=== PATIENT | female | born 1980 | race Caucasian/White ===

== ENCOUNTER 2018-10-19 13:11 | Emergency (ER) | payer OTHER, SELFPAY ==
[2018-10-19 13:16] VITALS: BP 105/80; PULSE 99; RESP 16; TEMP 36.7; O2SAT 100
--- NOTE | 2018-10-19 13:31 | NUR.NOTE ---
at bedside for eval Nursing Note:
--- NOTE | 2018-10-19 13:35 | DI.CT_ITS ---
SYMPTOMS/DIAGNOSIS: LEFT LOWER QUADRANT ABDOMINAL PAIN, H/O CYSTS, S/P HYSTERECTOMY CT SCAN OF THE ABDOMEN AND PELVIS: Routine examination was performed. No priors for comparison. Dependent atelectatic changes are seen in the lung bases. The liver is unremarkable. No suspicious hepatic masses seen. The portal and superior mesenteric veins are patent. The patient is status post cholecystectomy. There is no biliary ductal dilatation. The pancreas, spleen, adrenal glands, kidneys, ureters and bladder are unremarkable. The reproductive organs are unremarkable. There is bowel wall thickening seen in the descending colon and the proximal sigmoid colon with pericolonic inflammatory changes consistent with colitis. Infectious or inflammatory colitis should be considered. The remainder of the bowel is unremarkable. There is a normal appendix present. There is a small amount of fluid in the pelvis. No significant adenopathy or pneumoperitoneum is present. The aorta is of normal caliber. Postsurgical changes are seen in the lumbar spine extending from L3 through L5. IMPRESSION: Findings of colitis involving the descending colon and proximal sigmoid colon. The etiology may be infectious or inflammatory. The findings were discussed with Dr. Barbour of the Emergency Department on the date of the examination.
--- NOTE | 2018-10-19 13:37 | W.ED.GENAD ---
Discharge Plan Disposition Patient Disposition: HOME Condition: Improving Discharge Details Chief Complaint: Abd Prob Clinical Impression: Colitis Primary Care Provider: Suy[facility],Local ED Provider: Ryder Barbour Home Meds and New Rx's Prescriptions: New azithromycin 500 mg tablet 500 mg PO DAILY 3 Days Qty: 3 RF: 0 Continued montelukast [Singulair] 10 mg Tablet 10 mg PO DAILY RF: 0 albuterol sulfate [Ventolin HFA] 90 mcg/actuation Hfa Aerosol Inhaler 2 puff INHALATION PRN PRNRF: 0 Symbicort 160-4.5 mcg/actuation Hfa Aerosol Inhaler 2 puff INHALATION BID RF: 0 Discharge Instructions Additional Instructions: Home to rest today. Continue to push fluids to maintain hydration. Observe a bland diet. Follow-up with gastroenterology as you have previously planned next week. Take azithromycin for 3 days as prescribed. Return to the ER if you have worsening discomfort, develop bloody diarrhea, fever, or any other acute concern Medical Decision Making 37-year-old female with 2 weeks of intermittent left-sided predominantly lower abdominal pain. Associated with some dark-colored urine. She is visiting this area from her home in [place], [place]. She arrives to the ER afebrile with a pulse in the 90s, blood pressure 150/80. She is tender in the left abdomen but does not exhibit true peritonitis. Differential diagnosis includes renal colic, pyelonephritis, simple cystitis, ovarian cyst, bowel pathology such as diverticulitis. CT does reveal a distal colitis without evidence of diverticulitis. Patient has been traveling back and forth to her home in [place]. I do feel she is at risk for complicated/infectious colitis and I will treat her with 3 days of azithromycin. She has a history of IBS and has pre-standing follow-up with gastroenterology in [place] next week. She understands return precautions to the ER in the interim HPI General Mode of arrival: ambulatory. Date/Time Provider Initiated Documentation: 10/19/18 13:30. Limitations to Documentation: no limitations. Information obtained by: patient. History of Present Illness 37 year old F presents to the emergency department with the chief complaint of Left lower quadrant abdominal pain for weeks time, described as moderate and similar to prior episodes, and is localized to the left. Patient abdomen. Patient started experiencing this week(s) and it has been intermittent. No relieving factors improve symptom(s), No exacerbating factors reported . Patient notes loss of appetite; denies fever/chills and nausea/vomiting. Patient did receive the following treatments prior to arrival, none Related Data Home Medications Medication Instructions Recorded Confirmed Symbicort 2 puff INHALATION BID 10/19/18 10/19/18 albuterol sulfate [Ventolin HFA] 2 puff INHALATION PRN PRN 10/19/18 10/19/18 azithromycin 500 mg PO DAILY 3 Days #3 tab 10/19/18 montelukast [Singulair] 10 mg PO DAILY 10/19/18 10/19/18 Previous Rx's Medication Instructions Recorded azithromycin 500 mg PO DAILY 3 Days #3 tab 10/19/18 Allergies Allergy/AdvReac Type Severity Reaction Status Date / Time adhesive tape Allergy Mild Skin Rash Unverified 10/19/18 13:23 latex Allergy Mild Skin Rash Unverified 10/19/18 13:23 General Stated Complaint: Abd Prob ROSELINE: 3 Review of Systems Review of Systems 6 systems reviewed and otherwise no PFSH Social History Alcohol Intake: current Alcohol Intake frequency: a few times a month Do you feel safe at home: Yes Do you feel safe in your relationship?: Yes Exam Narrative Exam Narrative: GEN: awake, alert, oriented 3. Pleasant, well groomed, interactive. HEAD: Normocephalic, atraumatic ENT: Mucous membranes moist, oropharynx unremarkable, External ear exam unremarkable EYES: PERRL, EOMI NECK: Full ROM, no JESUS, no menigismus CHEST/RESP: Nontender, clear to auscultation bilateral, no wheeze/rhonchi/rales CARDIOVASCULAR: RRR, no murmur, rub van. 2+ Rad pulse bilateral ABDOMEN: Soft, tender in the left upper and lower abdomen, left flank, no rebound tenderness, no mass. +Bowel sounds EXT: Full ROM, no edema, no rash Neuro: Grossly normal neurologic exam, conversant, interactive. Psych: Speech fluent, thoughts congruent, affect normal Course Vital Signs Temperature 36.7 C 10/19/18 13:16 Pulse 99 H 10/19/18 13:16 Respiratory Rate 16 10/19/18 13:16 Blood Pressure 105/80 10/19/18 13:16 Pulse Oximetry 100 10/19/18 13:16 Temperature 36.7 C 10/19/18 13:16 Temperature Source Skin 10/19/18 13:16 Pulse 99 H 10/19/18 13:16 Respiratory Rate 16 10/19/18 13:16 Blood Pressure 105/80 10/19/18 13:16 Blood Pressure Position Sitting 10/19/18 13:16 Pulse Oximetry 100 10/19/18 13:16 Oxygen Delivery Method Room Air 10/19/18 13:16 Oxygen Flow Rate 0 10/19/18 13:16 Pain Level 7 10/19/18 13:16
[2018-10-19] MEDS: Normal Saline 1,000 ML 1000 ML IV (13:45)
[2018-10-19] MEDS: Ondansetron 4 MG/2 ML VIAL IVP (13:45)
[2018-10-19 13:57] LABS: Abs Immature Grans 0.01 k/cumm (0.0-0.09); Absolute Basophil Count 0.01 k/cumm (0.0-0.2); Absolute Eosinophil Count 0.03 k/cumm (0.0-0.7); Absolute Lymphocyte Count 1.17 k/cumm (1.2-3.4); Absolute Monocyte Count 0.28 k/cumm (0.11-0.7); Basophils % 0.1; Eosinophils % 0.4; HCT 36.5 % (36.0-46.0); HGB 12.7 g/dL (12.0-15.5); Immature Grans % 0.1; Mean Corp. HGB Concentration 34.8 g/dL (32.0-36.0); Mean Corpuscular Volume 91.9 fL (80-95); Mean Platelet Volume 10.9 fL (8.0-11.0); Monocytes % 4.1; Neutrophils % 78.3; Platelet Count 133 x1000/uL (130-400); RBC 3.97 m/cumm (4.00-5.20); RBC Distribution Width 12.4 % (11.7-14.6)
[2018-10-19] MEDS: Omnipaque 350 MG/ML 100 ML BTL IJ (14:17)
[2018-10-19 14:27] LABS: Lipase 92 U/L (73-393)
[2018-10-19 14:31] LABS: ALT 17 U/L (12-78); AST 10 U/L (15-37); Albumin 3.9 g/dL (3.4-5.0); Alkaline Phosphatase 62 U/L (46-116); Anion Gap 10.4 mmol/L (3-11); BUN 7 mg/dL (7-18); Bilirubin, Total 0.3 mg/dL (0.2-1.0); CO2 24.6 mmol/L (21.0-32.0); CREATININE 0.78 mg/dL (0.55-1.02); Calcium 8.8 mg/dL (8.5-10.1); Chloride 106 mmol/L (98-107); Glucose 119 mg/dL (70-100); Potassium 3.5 mmol/L (3.5-5.1); Sodium 141 mmol/L (136-145); Total Protein 6.7 g/dL (6.4-8.2)
[2018-10-19] MEDS: Ketorolac 30 MG/ML VIAL (14:31)
[2018-10-19 14:53] VITALS: BP 122/75; PULSE 82; RESP 16; TEMP 36.9; O2SAT 98
--- NOTE | 2018-10-19 14:55 | NUR.NOTE ---
pt dc home ambulatory steady on dc dc.rx reviewed with pt able to verblize understanding Nursing Note:
== END 2018-10-19 14:55 | disposition home or self-care (01) ==
PROVIDERS: Emergency Provider Emergency Medicine; PCP Internal Medicine
DX: K52.9 Noninfective gastroenteritis and colitis, unspecified (principal); K58.9 Irritable bowel syndrome, unspecified
CPT/HCPCS: 36415; 80053; 83690; 96361; 96374; 96375; 99285; 74177; 85025; 99284; J1885; J2405; J3490